=== PATIENT | female | born 1990 | race Caucasian/White ===

== ENCOUNTER 2017-04-15 07:44 | Day surgery (SDC) | payer OTHER ==
[2017-04-15 08:42] LABS: BILIRUBIN,URINE NEGATIVE (NEGATIVE); GLUCOSE, URINE (UA) NEGATIVE (NEGATIVE); KETONES,URINE (UA) NEGATIVE (NEGATIVE); LEUKOCYTE ESTERASE, URINE SMALL (NEGATIVE); NITRITE,URINE NEGATIVE (NEGATIVE); OCCULT BLOOD,URINE LARGE (NEGATIVE); PROTEIN,URINE 30 mg/dL (NEGATIVE); UROBILINOGEN,URINE 0.2 (NORMAL) E.U./dL (NORMAL)
[2017-04-15 08:44] LABS: CLARITY,URINE CLOUDY (CLEAR)
[2017-04-15 08:57] LABS: BACTERIA,URINE Rare /HPF (None Seen); RBC,URINE TNTC /HPF (0-5); SQUAMOUS EPITHELIAL CELL,UR MANY Squamous (<= Few)
--- NOTE | 2017-04-15 09:13 | ED Physician Documentation ---
PD HPI ABD PAIN - Stated complaint Stated Complaint: ABD PX/POST PREG - Chief complaint Chief Complaint: Abd Pain - History obtained from History obtained from: Patient, Family - History of Present Illness Timing - onset: Last night Timing - duration: Hours Timing - details: Gradual onset, Still present Quality: Cramping, Sharp, Pain Location: RLQ, Suprapubic Improved by: Laying still Worsened by: Moving, Breathing, Position, Palpation Associated symptoms: Fever, Nausea, Diarrhea. No: Vomiting, Hematemesis, Dysuria, Chest pain Similar symptoms before: Has not had sx before Recently seen: Other (The patient had a baby 6 days ago) - Additional information Additional information: 26-year-old female who is 6 days has developed abdominal pain in the lower abdomen beginning last night this worsened throughout the night and she now has localization of the pain to the right lower quadrant. She did have some fever and chills last night she is denies any urinary symptoms she did have some diarrhea yesterday and this morning. The went well she had her baby within 4 hours of arriving to the hospital and within an hour and a half of having her membranes ruptured. She was group B strep negative. The baby is healthy and the mother is not breast-feeding. She does not have an appetite this morning. Review of Systems Constitutional: reports: Fever, Chills Eyes: denies: Decreased vision Ears: denies: Ear pain Nose: reports: Congestion Throat: denies: Sore throat Cardiac: denies: Chest pain / pressure, Palpitations Respiratory: reports: Cough. denies: Dyspnea GI: reports: Abdominal Pain, Nausea. denies: Vomiting, Constipation, Diarrhea : denies: Dysuria, Frequency Skin: denies: Rash Musculoskeletal: denies: Neck pain, Back pain, Extremity pain Neurologic: denies: Generalized weakness, Focal weakness, Numbness PD PAST MEDICAL HISTORY - Past Medical History Past Medical History: No - Past Surgical History Past Surgical History: Yes HEENT: Tonsil/Adenoidectomy - Present Medications Home Medications: Ambulatory Orders Medication Instructions Recorded Confirmed Acetaminophen [Tylenol] 04/15/17 Docusate Sodium 250Mg Capsule 250 mg PO DAILY 04/15/17 04/15/17 [Colace 250Mg Capsule] Ibuprofen [Motrin] 400 mg PO ONCE 04/15/17 04/15/17 - Allergies Allergies/Adverse Reactions: Allergies Allergy/AdvReac Type Severity Reaction Status Date / Time No Known Drug Allergies Allergy Verified 04/15/17 08:05 - Social History Does the pt smoke?: No Smoking Status: Never smoker Does the pt drink ETOH?: No Does the pt have substance abuse?: No - Immunizations Immunizations are current?: Yes PD ED PE NORMAL - Vitals Vital signs reviewed: Yes (normal ) - General General: Alert and oriented X 3, No acute distress, Well developed/nourished - HEENT HEENT: Atraumatic, PERRL - Neck Neck: Supple, no meningeal sign - Cardiac Cardiac: RRR, No murmur - Respiratory Respiratory: No respiratory distress, Clear bilaterally - Abdomen Abdomen: Soft, Other (RLQ tenderness to palpation with referred tenderness to the RLQ and rebound tenderness) - Back Back: No CVA TTP, No spinal TTP - Derm Derm: Normal color, Warm and dry, No rash - Extremities Extremities: No deformity, No edema - Neuro Neuro: Alert and oriented X 3, No motor deficit, No sensory deficit, Normal speech Eye Opening: Spontaneous Motor: Obeys Commands Verbal: Oriented GCS Score: 15 - Psych Psych: Normal mood, Normal affect Results - Vitals Vitals: Vital Signs - 24 hr 04/15/17 04/15/17 04/15/17 08:07 12:22 12:25 Temperature 36.0 C L Heart Rate 100 Respiratory 18 Rate Blood Pressure 127/73 Blood Pressure [Brachial artery] O2 Saturation 98 100 100 04/15/17 04/15/17 04/15/17 12:30 12:35 12:40 Temperature Heart Rate Respiratory Rate Blood Pressure Blood Pressure [Brachial artery] O2 Saturation 100 100 100 04/15/17 04/15/17 04/15/17 12:45 12:50 12:55 Temperature Heart Rate Respiratory Rate Blood Pressure Blood Pressure [Brachial artery] O2 Saturation 100 100 100 04/15/17 04/15/17 04/15/17 13:00 13:05 13:10 Temperature 36.6 C Heart Rate 87 Respiratory 16 Rate Blood Pressure Blood Pressure 116/58 L [Brachial artery] O2 Saturation 98 98 98 04/15/17 04/15/17 13:40 14:10 Temperature 36.9 C 36.9 C Heart Rate 84 74 Respiratory 18 15 Rate Blood Pressure Blood Pressure 117/58 L 115/62 [Brachial artery] O2 Saturation 98 99 Oxygen O2 Source Room air - Labs Labs: Laboratory Tests 04/15/17 04/15/17 04/15/17 08:25 09:24 09:24 WBC 11.3 H RBC 4.49 Hgb 12.7 Hct 37.5 MCV 83.6 MCH 28.4 MCHC 33.9 RDW 14.1 Plt Count 248 MPV 8.9 Neut # 10.0 H Lymph # 0.7 L Navarro # 0.5 Eos # 0.1 Baso # 0.0 Absolute Nucleated RBC 0.00 Nucleated RBC % 0.0 Sodium 135 Potassium 3.8 Chloride 103 Carbon Dioxide 23 Anion Gap 9.0 BUN 9 Creatinine 0.5 Estimated GFR (MDRD) 149 Glucose 93 Calcium 9.1 Total Bilirubin 0.3 AST 29 ALT 23 Alkaline Phosphatase 109 Total Protein 7.3 Albumin 3.4 Globulin 3.9 Albumin/Globulin Ratio 0.9 L Lipase 23 Urine Color DARK YELLOW Urine Clarity CLOUDY Urine pH 6.0 Ur Specific [place] >=1.030 H Urine Protein 30 H Urine Glucose (UA) NEGATIVE Urine Ketones NEGATIVE Urine Occult Blood LARGE H Urine Nitrite NEGATIVE Urine Bilirubin NEGATIVE Urine Urobilinogen 0.2 (NORMAL) Ur Leukocyte Esterase SMALL H Urine RBC TNTC H Urine WBC 6-10 H Ur Squamous Epith Cells MANY Squamous H Urine Bacteria Rare Ur Microscopic Review INDICATED Urine Culture Comments NOT INDICATED - Rads (name of study) CT ab/pel without Radiology: Prelim report reviewed (Impression: 1. Acute sinusitis. Technically suboptimal evaluation secondary to lack of intravenous contrast, but there is no gross evidence for abscess or yuko rupture. 2. Mild inflammatory or infectious change in the right lung base. 3. Hepatic steatosis.) , Discussed with rads, EMP read indepedently, See rad report PD MEDICAL DECISION MAKING - ED course Complexity details: reviewed old records, reviewed results, re-evaluated patient , considered differential, d/w patient, d/w family ED course: 26-year-old female with acute right lower quadrant abdominal pain 6 days after giving has an examination consistent with appendicitis and CT scan confirms acute appendicitis. Departure - Departure Disposition: ED Transfer to [facility] Clinical Impression: Appendicitis Qualifiers: Appendicitis type: acute appendicitis Acute appendicitis type: with localized peritonitis Qualified Code(s): K35.3 - Acute appendicitis with localized peritonitis Discharge Date/Time: 04/15/17 11:27
[2017-04-15 09:37] LABS: BASOPHILS % (AUTO) 0.2 %; EOSINOPHILS # (AUTO) 0.1 10^3/uL (0.0-0.7); EOSINOPHILS % (AUTO) 0.8 %; HGB - HEMOGLOBIN 12.7 g/dL (12.0-16.0); LYMPHOCYTES # (AUTO) 0.7 10^3/uL (1.5-3.5); LYMPHOCYTES % (AUTO) 6.2 %; MEAN CORPUSCULAR HEMOGLOBIN 28.4 pg (27.0-31.0); MEAN CORPUSCULAR HGB CONC 33.9 g/dL (32.0-36.0); MEAN CORPUSCULAR VOLUME 83.6 fL (81.0-99.0); MEAN PLATELET VOLUME 8.9 fL (7.9-10.8); MONOCYTES # (AUTO) 0.5 10^3/uL (0.0-1.0); MONOCYTES % (AUTO) 4.2 %; NEUTROPHILS % (AUTO) 88.6 %; PLT - PLATELET COUNT 248 10^3/uL (130-450); RED BLOOD COUNT 4.49 10^6/uL (4.20-5.40); RED CELL DISTRIBUTION WIDTH 14.1 % (12.0-15.0); WHITE BLOOD COUNT 11.3 x10^3/uL (4.8-10.8)
[2017-04-15 09:47] LABS: ALBUMIN 3.4 g/dL (3.2-5.5); ALBUMIN/GLOBULIN RATIO 0.9 (1.0-2.2); BILIRUBIN,TOTAL 0.3 mg/dL (0.2-1.0); CALCIUM 9.1 mg/dL (8.5-10.3); CREATININE 0.5 mg/dL (0.4-1.0); TOTAL PROTEIN 7.3 g/dL (6.7-8.2)
--- NOTE | 2017-04-15 10:26 | CT Report ---
EXAM: CT ABDOMEN AND PELVIS (CT KUB) EXAM DATE: 04/15/2017 10:04 AM. CLINICAL HISTORY: RLQ pain post 6 days. COMPARISONS: None. TECHNIQUE: Routine axial helical CT imaging was performed through the abdomen and pelvis without IV c ontrast. Reconstructions: Coronal and sagittal. In accordance with CT protocol optimization, one or more of the following dose reduction techniques w ere utilized for this exam: automated exposure control, adjustment of mA and/or KV based on patient s ize, or use of iterative reconstructive technique. FINDINGS: Lung Bases: Mild posterior right lower lobe hazy and nodular opacities. Minimal left lower lobe atele ctasis. Right Kidney/Ureter: No stones, hydronephrosis, or hydroureter. No perinephric fat stranding. Left Kidney/Ureter: No stones, hydronephrosis, or hydroureter. No perinephric fat stranding. Other Solid Organs: Diffusely decreased attenuation of the hepatic parenchyma. Noncontrast images of the spleen, pancreas, and bilateral adrenal glands demonstrate no significant abnormality. Gallbladder/Bile Ducts: Unremarkable. Peritoneal Cavity: No ascites or pneumoperitoneum. No bowel obstruction or abnormal stool burden. The appendix is dilated to approximately 12 mm in diameter and there is periappendiceal inflammatory fat stranding. Appendicolith at the origin of the appendix. No definite evidence of abscess on this nonc ontrast study. Pelvic Organs: The urinary bladder demonstrates no significant abnormality. Grossly unremarkable appe arance of the uterus. Vasculature: Unremarkable. Other: None. IMPRESSION: 1. Acute appendicitis. Technically suboptimal evaluation secondary to lack of intravenous contrast, b ut there is no gross evidence of abscess or yuko rupture. 2. Mild inflammatory or infectious change in the right lung base. 3. Hepatic steatosis. RADIA The above findings were discussed with Dr. Boogie by Dr. Gian Pizarro at 10:24 hrs on 04/15/17. Referring Provider Line: [phone] SITE ID: [id number]
[2017-04-15] MEDS ORDERED: AMPICILLIN/SULBACTAM 3 GM in SODIUM CHLORIDE 0.9% MINIBAG 100 ML IV STA (10:33)
[2017-04-15] MEDS ORDERED: LACTATED RINGERS 1,000 ML IV STA (11:24)
[2017-04-15] MEDS ORDERED: LACTATED RINGERS 1,000 ML IV ONE (11:30)
[2017-04-15] MEDS ORDERED: BUPIVACAINE 0.5%-EPI 1:200000 PF 10 ML VIAL ONE (11:30)
[2017-04-15] MEDS ORDERED: ONDANSETRON 4 MG/2 ML VIAL IVP ONE (11:50)
[2017-04-15] MEDS ORDERED: ROCURONIUM 50 MG/5 ML VIAL IVP ONE (11:50)
[2017-04-15] MEDS ORDERED: fentaNYL 100 MCG/2 ML VIAL IVP ONE (11:50)
[2017-04-15] MEDS ORDERED: SUCCINYLCHOLINE 200 MG/10 ML VIAL IVP ONE (11:50)
[2017-04-15] MEDS ORDERED: MIDAZOLAM 2 MG/2 ML VIAL IVP ONE (11:50)
[2017-04-15] MEDS ORDERED: LIDOCAINE-MPF 2% 5 ML VIAL IM ONE (11:50)
[2017-04-15] MEDS ORDERED: PROPOFOL 200 MG/20 ML VIAL IVP ONE (11:50)
[2017-04-15] MEDS ORDERED: KETOROLAC 30 MG/ML VIAL IVP ONE (11:50)
[2017-04-15] MEDS ORDERED: DEXAMETHASONE 4 MG/ML VIAL IVP ONE (11:50)
[2017-04-15] MEDS ORDERED: NEOSTIGMINE 1 MG/1 ML 10 ML MDV IVP ONE (11:50)
[2017-04-15] MEDS ORDERED: BUPIVACAINE 0.5%-EPI 1:200000 PF 30 ML VIAL SUBQ ONE (12:26)
--- NOTE | 2017-04-15 12:28 | OPERATIVE REPORT ---
Operative Report - General Procedure Date: 04/15/17 Pre-Op Diagnosis: Acute Appendicitis Procedure Performed: Laparoscopic Appendectomy Post Op Diagnosis: Same - Procedure Note Primary Surgeon: Jose Anesthesia Technique: General ET tube - Other Other Information/Narrative: Indication: This is a 26 year old female Who presented with a one-day history of abdominal pain. CT scan findings demonstrated acute appendicitis.The patient is 6 days . Findings: After obtaining informed consent from the patient she was brought into the operating room and positioned on the operating table in the supine position taking noted pressure points. She was intubated by anesthesia. She was administered perioperative antibiotics. She was prepped and draped in usual sterile fashion and a timeout was taken according to protocol. A infraumbilical semicircular incision was created and deepened down to the umbilical stalk. The stalk was grasped and elevated. The varies needle was inserted. The abdominal cavity was insufflated. A 5 mm incision was created on the left lateral abdominal wall. Using the 5 mm Optiview trocar the abdominal cavity was entered. The varies needle was then exchanged for a 12 mm trocar. An additional 5 mm port was placed between the pubic symphysis and the umbilical port taking care to protect the underlying enlarged uterus. The patient was then positioned in Trendelenburg with right side elevated. The appendix was visualized and noted to be inflamed. There was purulent fluid surrounding the appendix but no obvious perforation was noted. The appendix was grasped and elevated towards the anterior abdominal wall. The mesoappendix was divided with the LigaSure device. The base of the appendix was then amputated using the Endo SAHIL 35 mm stapling device. The appendix was placed in a specimen bag. The staple line was then inspected and no signs of bleeding were noted. The appendix was removed through the umbilical port site. Using the Angel Barr device the umbilical port site was closed with figure-of- eight 0 Vicryl suture. The abdominal cavity was allowed to desufflate. 30 cc of local anesthetic was infiltrated. The skin incisions were closed with 4-0 Monocryl. Steri-Strips and sterile dressing were applied. The patient was subsequently extubated and taken to recovery room in stable condition. Estimated blood loss: 5 cc Specimen: Appendix Complications: None.
[2017-04-15] MEDS ORDERED: ACETAMINOPHEN 1,000 MG/100 ML 100 ML IV ONE (13:26)
[2017-04-15 14:23] VITALS: BP 115/62
== END 2017-04-15 11:11 | disposition home or self-care (01) ==
LOC: ED 07:44 → SDS 11:10
PROVIDERS: ATTEND Surgery
PROC: 0DTJ4ZZ Resection of Appendix, Percutaneous Endoscopic Approach (ICD-10-PCS; principal; 2017-04-15 12:15)
DX: K35.80 Unspecified acute appendicitis (principal)
CPT/HCPCS: 36415; 44970; 74176; 80053; 81001; 83690; 85025; 96365; 99283; 99284; J0131; J0330; J7120; 81003; 87086